=== PATIENT | male | born 1935 | race Caucasian/White ===

== ENCOUNTER 2019-06-22 18:43 | Inpatient (IN) | payer MEDICARE, BC ==
[~2019-06-22] VITALS: Ht 182.9 cm; Wt 71.8 kg
[2019-06-22 19:36] LABS: BASOPHILS % (AUTO) 0 % (0-1); EOSINOPHILS % (AUTO) 0 % (0-6); HEMATOCRIT 41.4 % (42.0-52.0); HEMOGLOBIN 13.9 g/dl (14.0-17.9); LYMPHOCYTES # (AUTO) 0.6 X10'3 (1.1-4.8); LYMPHOCYTES % (AUTO) 6.9 % (21-51); MEAN CORPUSCULAR HEMOGLOBIN 34.8 PG (27.0-31.0); MEAN CORPUSCULAR HGB CONC 33.6 g/dL (33.0-36.5); MEAN CORPUSCULAR VOLUME 103.7 FL (78-98); MEAN PLATELET VOLUME 9.1 FL (7.4-10.4); MONOCYTES # (AUTO) 0.6 X10'3 (0-0.9); MONOCYTES % (AUTO) 6.6 % (2-12); NEUTROPHILS # (AUTO) 8.1 X10'3 (1.8-7.7); NEUTROPHILS % (AUTO) 86.5 % (42-75); PLATELET COUNT 200 X10'3 (140-440); RED BLOOD COUNT 3.99 X10'6 (4.70-6.10); RED CELL DISTRIBUTION WIDTH 14.7 % (11.5-14.5); WHITE BLOOD COUNT 9.3 X10'3 (4.5-11.0)
[2019-06-22 19:49] LABS: ANION GAP 6 (8-16); CHLORIDE 99 MMOL/L (99-107); SODIUM 137 MMOL/L (135-145); TOTAL CARBON DIOXIDE 32.4 MMOL/L (24-32)
[2019-06-22 19:54] LABS: ALANINE AMINOTRANSFERASE 15 U/L (12-78); ALBUMIN 3.6 G/DL (3.4-5.0); ALBUMIN/GLOBULIN RATIO 0.9 (1.1-1.5); ALKALINE PHOSPHATASE 93 IU/L (46-116); ASPARTATE AMINO TRANSFERASE 22 U/L (10-37); BILIRUBIN,TOTAL 2.7 MG/DL (0.1-1.0); BLOOD UREA NITROGEN 40 MG/DL (7-18); BUN/CREATININE RATIO 13.7 (5.4-32.0); CALCIUM 8.9 MG/DL (8.5-10.1); CREATININE 2.93 MG/DL (0.60-1.10); GLUCOSE 92 MG/DL (70-104); LIPASE 139 U/L (73-393); POTASSIUM 4.3 MMOL/L (3.5-5.1); TOTAL PROTEIN 7.5 G/DL (6.4-8.2); eGFR 21 ML/MIN
[2019-06-22] MEDS ORDERED: morphine 4 MG/ML inj SYRINge IV PRN (20:00)
[2019-06-22] MEDS ORDERED: normal saline 1000ML IV soln IVB ONE (20:00)
[2019-06-22] MEDS ORDERED: ondansetron/PF 4mg/2ml inj IV ONE (20:00)
[2019-06-22] MEDS ORDERED: MAGN64TA8 PO (20:06)
[2019-06-22] MEDS ORDERED: SULF500T9 PO (20:06)
[2019-06-22] MEDS ORDERED: LIPA1CAP9 PO (20:06)
[2019-06-22] MEDS ORDERED: DIPH1TAB PO (20:06)
[2019-06-22] MEDS ORDERED: FOLI0.4T2 PO (20:06)
[2019-06-22] MEDS ORDERED: ATOR40TA PO (20:06)
[2019-06-22] MEDS ORDERED: APIX5TAB3 PO (20:06)
[2019-06-22] MEDS ORDERED: AMIO200T61 PO (20:06)
[2019-06-22] MEDS ORDERED: BUME1TAB34 PO (20:06)
[2019-06-22] MEDS ORDERED: CAPT12.53 PO (20:06)
[2019-06-22] MEDS ORDERED: FLO0.4C PO (20:06)
[2019-06-22] MEDS ORDERED: CARV-50 PO (20:06)
--- NOTE | 2019-06-22 20:18 | NUR ---
To CT via [facility].
[2019-06-22 20:21] LABS: CLARITY,URINE SLIGHTLY CLOUDY (Clear); GLUCOSE, URINE NEGATIVE (Neg); KETONES,URINE TRACE mg/dl (Neg); LEUKOCYTE ESTERASE ,URINE NEGATIVE (Neg); NITRITES, URINE NEGATIVE (Neg); OCCULT BLOOD,URINE LARGE (Neg); PROTEIN,URINE NEGATIVE (Neg)
[2019-06-22 20:25] LABS: COLOR,URINE Dark Yellow (Yellow); UA COLLECTION TYPE STRAIGHT CATH
[2019-06-22 20:36] LABS: HYALINE CASTS >30 /LPF (NEGATIVE)
[2019-06-22 20:38] LABS: BACTERIA,URINE NONE SEEN /HPF (Neg); SQUAMOUS EPITHELIAL CELL,UR NONE SEEN /LPF (FEW); TRANSITIONAL EPI CELLS,URINE FEW /HPF; WBC,URINE 0-4 /HPF (0-4)
[2019-06-22 20:39] LABS: MUCUS STRANDS FEW /LPF (Neg)
--- NOTE | 2019-06-22 20:44 | NUR ---
traffic engineering technician states PIV accidently dc'd at CT during transfer.
[2019-06-22] MEDS ORDERED: cefepime 2gm inj IV STA (21:49)
[2019-06-22] MEDS ORDERED: cefepime inj 2 GM in dextrose 5%-water 50ml 50 ML IV ONE (22:00)
[2019-06-22] MEDS ORDERED: morphine 2 MG/ML inj. syringe IV PRN (22:40)
[2019-06-22] MEDS ORDERED: acetaminophen 325mg tablet PO PRN (22:40)
[2019-06-22] MEDS ORDERED: ondansetron/PF 4mg/2ml inj IV PRN (22:40)
[2019-06-22] MEDS ORDERED: mag hydrox/Alum hydrox/simeth 30ml oral suspension PO PRN (22:40)
[2019-06-22] MEDS ORDERED: magnesium hydroxide 30ml (MOM) UD suspension PO PRN (22:40)
[2019-06-22] MEDS: normal saline 1000ml 1,000 ML IV SCH ×2 (22:54→23:01)
--- NOTE | 2019-06-22 23:45 | NUR ---
Patient in room PCU 3028. I have received report from ED RN and had the opportunity to ask questions and assume patient care.
--- NOTE | 2019-06-22 23:55 | NUR ---
Pt arrived via [facility] fr/ED in no acte distress. Oriented to bed , room, and surroundings. POC reviewed w/pt. Admission process started.
[2019-06-23] VITALS (7 sets, daily range): BP systolic 93–113; BP diastolic 54–65
[2019-06-23] MEDS: normal saline 1000ml 1,000 ML IV SCH ×3 (00:44→20:30)
[2019-06-23] MEDS: morphine 2 MG/ML inj. syringe IV PRN ×2 (01:42→21:33)
[2019-06-23] MEDS ORDERED: ceFOXitin 1 GM/D5W 50mL IVPB 50 ML IV SCH (06:00)
--- NOTE | 2019-06-23 06:30 | NUR ---
Problems reprioritized. Patient report given, questions answered & plan of care reviewed with Varsha DYE.
--- NOTE | 2019-06-23 06:30 | NUR ---
Patient in room PCU 3028. I have received report from Iva DYE and had the opportunity to ask questions and assume patient care.
[2019-06-23 06:41] LABS: ALBUMIN 2.8 G/DL (3.4-5.0); ANION GAP 7 (8-16); BLOOD UREA NITROGEN 40 MG/DL (7-18); BUN/CREATININE RATIO 14.9 (5.4-32.0); CALCIUM 8.2 MG/DL (8.5-10.1); CHLORIDE 103 MMOL/L (99-107); CREATININE 2.68 MG/DL (0.60-1.10); GLUCOSE 71 MG/DL (70-104); POTASSIUM 4.3 MMOL/L (3.5-5.1); SODIUM 140 MMOL/L (135-145); TOTAL CARBON DIOXIDE 29.7 MMOL/L (24-32); eGFR 23 ML/MIN
[2019-06-23 07:26] LABS: BASOPHILS % (AUTO) 0.3 % (0-1); EOSINOPHILS % (AUTO) 0 % (0-6); HEMATOCRIT 36.8 % (42.0-52.0); HEMOGLOBIN 12.1 g/dl (14.0-17.9); LYMPHOCYTES # (AUTO) 0.5 X10'3 (1.1-4.8); LYMPHOCYTES % (AUTO) 4.7 % (21-51); MEAN CORPUSCULAR HEMOGLOBIN 34.1 PG (27.0-31.0); MEAN CORPUSCULAR HGB CONC 32.9 g/dL (33.0-36.5); MEAN CORPUSCULAR VOLUME 103.5 FL (78-98); MEAN PLATELET VOLUME 9.5 FL (7.4-10.4); NEUTROPHILS # (AUTO) 9.7 X10'3 (1.8-7.7); PLATELET COUNT 173 X10'3 (140-440); RED BLOOD COUNT 3.56 X10'6 (4.70-6.10); RED CELL DISTRIBUTION WIDTH 14.8 % (11.5-14.5); WHITE BLOOD COUNT 11.2 X10'3 (4.5-11.0)
[2019-06-23] MEDS: magnesium Cl slow-release 64mg tablet PO SCH ×2 (07:38→21:30)
[2019-06-23] MEDS: atorvastatin 20mg tablet PO SCH (07:38)
[2019-06-23] MEDS: carvedilol 6.25mg tablet PO SCH ×2 (07:38→21:32)
[2019-06-23] MEDS: sulfaSALAZINE 500 MG tablet PO SCH (07:39)
[2019-06-23] MEDS: LIPASE/PROTEASE/AMYLASE 4,200 unit CAPSULE.DR PO SCH ×2 (07:39→17:38)
[2019-06-23] MEDS: folic acid 0.4mg tablet PO SCH (07:40)
[2019-06-23] MEDS: amiodarone 200mg tablet PO SCH (07:40)
--- NOTE | 2019-06-23 10:08 | NUR ---
Malnutrition consult: Pt reports poor appetite for several months. Unable to assess PO intake at this time as pt currently NPO. Current wt 71.8 kg using standing scale with BMI 21.5 documented at 72" tall. No past visits to check for wt trends or past documentation of height. Per H&P pt appears well developed and well nourished. Pt just admit pending physical assessment for possible changes in muscle strength, edema, and pt awareness. Currently not enough information at this time to best assess for malnutrition. Will f/u tomorrow. Addendum: 06/23/19 at [address] Amended: Links added.
--- NOTE | 2019-06-23 12:44 | NUR ---
I paged Dr. Pemberton about Dr. Danw; Dr dawn said patient would not need surgery since no ng tube was placed in ED. I'm waiting for response about diet order for patient.
[2019-06-23] MEDS: cefepime 1GM in D5W 50mL 50 ML IV SCH (15:33)
[2019-06-23] MEDS: metroNIDAZOLE-Flagyl 500mg/NS 100 ML IV SCH (16:31)
--- NOTE | 2019-06-23 18:29 | NUR ---
Patient report given to Iva DYE
--- NOTE | 2019-06-23 19:21 | NUR ---
Patient in room PCU 3028. I have received report from Varsha DYE and had the opportunity to ask questions and assume patient care.
--- NOTE | 2019-06-23 20:07 | NUR ---
Spoke with Dr. Dawn regarding possible CT with oral contrast with overnight prep due to family questions and mention of it in MDs note. MD stated he wants to wait until tomorrow depending on what the paracentesis results are. Will update family & patient
[2019-06-23] MEDS: lactobacillus rhamnosus 10,000 MMU CELLS/CAPSULE PO SCH (21:31)
[2019-06-24] VITALS (16 sets, daily range): BP systolic 94–112; BP diastolic 40–67
[2019-06-24] MEDS: sulfaSALAZINE 500 MG tablet PO SCH ×3 (00:17→19:33)
[2019-06-24] MEDS: cefepime 1GM in D5W 50mL 50 ML IV SCH ×3 (00:18→15:19)
[2019-06-24] MEDS: metroNIDAZOLE-Flagyl 500mg/NS 100 ML IV SCH ×3 (00:54→16:14)
[2019-06-24 06:05] LABS: BASOPHILS % (AUTO) 0.2 % (0-1); EOSINOPHILS % (AUTO) 0 % (0-6); HEMATOCRIT 35.3 % (42.0-52.0); LYMPHOCYTES # (AUTO) 0.5 X10'3 (1.1-4.8); LYMPHOCYTES % (AUTO) 5.7 % (21-51); MEAN CORPUSCULAR HEMOGLOBIN 34.7 PG (27.0-31.0); MEAN CORPUSCULAR HGB CONC 33.9 g/dL (33.0-36.5); MEAN CORPUSCULAR VOLUME 102.4 FL (78-98); MONOCYTES # (AUTO) 1.1 X10'3 (0-0.9); MONOCYTES % (AUTO) 12.7 % (2-12); NEUTROPHILS # (AUTO) 6.8 X10'3 (1.8-7.7); NEUTROPHILS % (AUTO) 81.4 % (42-75); PLATELET COUNT 179 X10'3 (140-440); RED BLOOD COUNT 3.45 X10'6 (4.70-6.10); RED CELL DISTRIBUTION WIDTH 14.7 % (11.5-14.5); WHITE BLOOD COUNT 8.3 X10'3 (4.5-11.0)
--- NOTE | 2019-06-24 06:15 | NUR ---
Patient in room PCU 3028. I have received report from Lucy DYE and had the opportunity to ask questions and assume patient care.
[2019-06-24 06:16] LABS: ALBUMIN 2.4 G/DL (3.4-5.0); ANION GAP 10 (8-16); BLOOD UREA NITROGEN 46 MG/DL (7-18); BUN/CREATININE RATIO 17.4 (5.4-32.0); CHLORIDE 104 MMOL/L (99-107); CREATININE 2.65 MG/DL (0.60-1.10); GLUCOSE 104 MG/DL (70-104); POTASSIUM 4.7 MMOL/L (3.5-5.1); SODIUM 137 MMOL/L (135-145); TOTAL CARBON DIOXIDE 23.3 MMOL/L (24-32); eGFR 23 ML/MIN
--- NOTE | 2019-06-24 07:12 | NUR ---
Patient in room PCU 3028. I have received report from MARNIE Enrique and had the opportunity to ask questions and assume patient care.
[2019-06-24] MEDS: carvedilol 6.25mg tablet PO SCH ×3 (08:00→21:18)
--- NOTE | 2019-06-24 08:44 | NUR ---
Problems reprioritized. Patient report given, questions answered & plan of care reviewed with Heena DYE.
[2019-06-24] MEDS: lactobacillus rhamnosus 10,000 MMU CELLS/CAPSULE PO SCH ×2 (09:27→19:33)
[2019-06-24] MEDS: amiodarone 200mg tablet PO SCH (09:27)
[2019-06-24] MEDS: LIPASE/PROTEASE/AMYLASE 4,200 unit CAPSULE.DR PO SCH ×2 (09:27→17:38)
[2019-06-24] MEDS: folic acid 0.4mg tablet PO SCH (09:27)
[2019-06-24] MEDS: tamsulosin 0.4mg capsule PO SCH (09:28)
[2019-06-24] MEDS: atorvastatin 20mg tablet PO SCH (09:28)
--- NOTE | 2019-06-24 12:32 | NUR ---
PAGER ID: [phone] MESSAGE: [id number] Teri Reyes 1.36L off from paracentesis. Has orders for NS 100ml/hr IV Q10H. Currently drinking fluids. Continue orders for IV NS? Ignacio [facility] [id number]
[2019-06-24 13:10] LABS: BF RBC COUNT 4475 /CU MM; BF WBC COUNT 19025 /CU MM (0-1000); BFAPPEAR CLOUDY; BFCOLOR AMBER; BFVOLUME 59 ML; NEUTROPHILS,BODY FLUID 94 %
[2019-06-24 13:11] LABS: LYMPHOCYTES,BODY FLUID 1 %; MONOCYTES,BODY FLUID 5 %
[2019-06-24] MEDS: diatr meglu/diatrizoate 30ml oral sol.-(3 dose) bottle PO SCH ×3 (15:18→20:33)
--- NOTE | 2019-06-24 15:37 | NUR ---
F/u: Pt PO 100% clear liquids advanced from NPO. LBM 06/23 having BMs. Still lack enough criteria to qualify for malnutrition at this time. Will continue to monitor. Addendum: 06/24/19 at [address] Amended: Links added.
--- NOTE | 2019-06-24 16:56 | NUR ---
paged dr. green PAGER ID: [phone] MESSAGE: [facility] [phone] do you want to continue iv fluids? has NS @
[2019-06-24] MEDS: normal saline 1000ml 1,000 ML IV SCH (17:26)
--- NOTE | 2019-06-24 18:38 | NUR ---
Problems reprioritized. Patient report given, questions answered & plan of care reviewed with MARNIE Castro.
--- NOTE | 2019-06-24 18:39 | NUR ---
Patient in room PCU 3028. I have received report from MARNIE Naik and had the opportunity to ask questions and assume patient care. Patient is resting comfortably on hospital bed, is at bedside. He is A&Ox3, GRULLON and is appropriate, he will be going to CT tonight @ 2100. I will continue to monitor.
[2019-06-24] MEDS ORDERED: iohexol 300mg/ml 100ml inj. ONE (19:13)
--- NOTE | 2019-06-24 20:37 | NUR ---
Patient was able to transfer to wheelchair w/o problem, he is going to CT.
[2019-06-25] VITALS (10 sets, daily range): BP systolic 81–107; BP diastolic 39–70
[2019-06-25] MEDS: cefepime 1GM in D5W 50mL 50 ML IV SCH ×3 (00:22→16:16)
[2019-06-25] MEDS: metroNIDAZOLE-Flagyl 500mg/NS 100 ML IV SCH ×3 (01:18→16:16)
--- NOTE | 2019-06-25 06:20 | NUR ---
Problems reprioritized. Patient report given, questions answered & plan of care reviewed with MARNIE Majano.
[2019-06-25 06:39] LABS: BASOPHILS % (AUTO) 0.3 % (0-1); EOSINOPHILS % (AUTO) 0 % (0-6); HEMATOCRIT 33.5 % (42.0-52.0); HEMOGLOBIN 11.5 g/dl (14.0-17.9); LYMPHOCYTES # (AUTO) 0.4 X10'3 (1.1-4.8); LYMPHOCYTES % (AUTO) 4.2 % (21-51); MEAN CORPUSCULAR HEMOGLOBIN 34.7 PG (27.0-31.0); MEAN CORPUSCULAR HGB CONC 34.3 g/dL (33.0-36.5); MEAN CORPUSCULAR VOLUME 101.1 FL (78-98); MEAN PLATELET VOLUME 8.8 FL (7.4-10.4); MONOCYTES # (AUTO) 1.2 X10'3 (0-0.9); MONOCYTES % (AUTO) 11.5 % (2-12); NEUTROPHILS # (AUTO) 8.6 X10'3 (1.8-7.7); PLATELET COUNT 206 X10'3 (140-440); RED BLOOD COUNT 3.32 X10'6 (4.70-6.10); RED CELL DISTRIBUTION WIDTH 14.7 % (11.5-14.5); WHITE BLOOD COUNT 10.2 X10'3 (4.5-11.0)
[2019-06-25 06:40] LABS: ALBUMIN 2.3 G/DL (3.4-5.0); ANION GAP 10 (8-16); BLOOD UREA NITROGEN 48 MG/DL (7-18); BUN/CREATININE RATIO 18.6 (5.4-32.0); CALCIUM 7.9 MG/DL (8.5-10.1); CHLORIDE 103 MMOL/L (99-107); CREATININE 2.58 MG/DL (0.60-1.10); GLUCOSE 93 MG/DL (70-104); SODIUM 138 MMOL/L (135-145); TOTAL CARBON DIOXIDE 25.4 MMOL/L (24-32); eGFR 24 ML/MIN
[2019-06-25 06:46] LABS: POTASSIUM 4.1 MMOL/L (3.5-5.1)
[2019-06-25] MEDS: LIPASE/PROTEASE/AMYLASE 4,200 unit CAPSULE.DR PO SCH ×2 (07:02→20:19)
[2019-06-25] MEDS: atorvastatin 20mg tablet PO SCH (07:02)
[2019-06-25] MEDS: lactobacillus rhamnosus 10,000 MMU CELLS/CAPSULE PO SCH ×2 (07:03→20:19)
[2019-06-25] MEDS: sulfaSALAZINE 500 MG tablet PO SCH ×2 (07:03→20:19)
[2019-06-25] MEDS: carvedilol 6.25mg tablet PO SCH ×2 (07:03→20:20)
[2019-06-25] MEDS: amiodarone 200mg tablet PO SCH (07:04)
[2019-06-25] MEDS: folic acid 0.4mg tablet PO SCH (07:04)
[2019-06-25] MEDS: magnesium Cl slow-release 64mg tablet PO SCH (08:00)
[2019-06-25] MEDS: normal saline 1000ml 1,000 ML IV SCH (10:05)
[2019-06-25] MEDS ORDERED: DOBUTamine-DoBUTrex 500mg/D5W 250 ML IV SCH (13:10)
[2019-06-25] MEDS ORDERED: folic acid 0.4mg tablet PO SCH (13:49)
--- NOTE | 2019-06-25 15:59 | NUR ---
Initial: Pt admit w/ abdominal pain found to have ascites, EF 10-15% likely causing liver disease per MD note. Pt takes folic acid and pancreatic enzymes per med rec; per family enzymes to help w/ digestion and no prior significant pancreatic hx. Ascites negative for pathology so no need for OR per MD note. CT shows colonic diverticulosis without diverticulitis as well as mesenteric edema consistent w/ anasarca per MD note. Pt not present during RD visit but SO/family present. SO/family reports UBW prior to ascites 150-160 pounds, pt has always been thin whole life, and past 2 weeks decreased PO r/t ascited decreasing appetite. At this time pt has no wt loss hx, no severe muscle weakness noted, mild edema; PO 100% clear liquids since admit. At this time pt qualifies for non-severe malnutrition; MD notified. Pt family agree that ensure clear ONS would be be enjoyable for pt to get extra protein/kcals on clears; aware that require MD verification prior to sending on trays. RD provided pt SO/family w/ written/verbal malnutrition ed and RD contact information. Will continue to monitor for additional protein needs as diet advances. Rec: 1. advance diet per MD to regular 2. ensure clear TIDWM; pending MD verification prior to sending on meals 3. weekly wts Addendum: 06/25/19 at [address] Amended: Links added.
--- NOTE | 2019-06-25 16:50 | NUR ---
Patient in room PCU 3028. I have received report from MARNIE Majano and had the opportunity to ask questions and assume patient care.
[2019-06-25] MEDS ORDERED: furosemide 40mg/4ml inj IV ONE (17:00)
[2019-06-25] MEDS ORDERED: lactose-reduced food (Ensure High Protein) 237ml bottle PO SCH (18:00)
[2019-06-25] MEDS ORDERED: NUT.TX.IMPAIRED DIGEST FXN (Ensure Clear) 237 ML PO SCH (18:00)
[2019-06-25] MEDS: apixaban 5mg tablet PO SCH (20:19)
[2019-06-25] MEDS: furosemide 20 MG/2 ML vial IV SCH (20:22)
--- NOTE | 2019-06-25 23:28 | NUR ---
Patient had a low BP of 81/39 map 49, retook 10 min later, BP is now 87/45 map of 56. Spoke to Dr. Arteaga will continue to monitor this patient.
[2019-06-26] VITALS (9 sets, daily range): BP systolic 17–112; BP diastolic 42–63
[2019-06-26] MEDS: cefepime 1GM in D5W 50mL 50 ML IV SCH ×3 (00:12→16:28)
--- NOTE | 2019-06-26 00:12 | NUR ---
scanner not working, manual medication specialist for cefepime
--- NOTE | 2019-06-26 00:45 | NUR ---
Patients one time dose of Lasix 40 mg due at 1700 was not given by daytime nurse. Spoke to Dr. Arteaga because patient had another does of Lasix 20 mg due at the time med that was missed was noticed around 1999. He said hold the one time dose and give the scheduled 20 mg.
[2019-06-26] MEDS: metroNIDAZOLE-Flagyl 500mg/NS 100 ML IV SCH ×3 (01:18→16:28)
[2019-06-26 03:41] LABS: BASOPHILS % (AUTO) 0.3 % (0-1); EOSINOPHILS % (AUTO) 0.1 % (0-6); HEMATOCRIT 31.4 % (42.0-52.0); HEMOGLOBIN 10.7 g/dl (14.0-17.9); LYMPHOCYTES # (AUTO) 0.6 X10'3 (1.1-4.8); LYMPHOCYTES % (AUTO) 5.1 % (21-51); MEAN CORPUSCULAR HEMOGLOBIN 34.8 PG (27.0-31.0); MEAN CORPUSCULAR HGB CONC 34.3 g/dL (33.0-36.5); MEAN CORPUSCULAR VOLUME 101.6 FL (78-98); MEAN PLATELET VOLUME 8.4 FL (7.4-10.4); MONOCYTES # (AUTO) 1.4 X10'3 (0-0.9); MONOCYTES % (AUTO) 11.9 % (2-12); NEUTROPHILS # (AUTO) 9.8 X10'3 (1.8-7.7); NEUTROPHILS % (AUTO) 82.6 % (42-75); PLATELET COUNT 210 X10'3 (140-440); RED BLOOD COUNT 3.09 X10'6 (4.70-6.10); RED CELL DISTRIBUTION WIDTH 14.7 % (11.5-14.5); WHITE BLOOD COUNT 11.9 X10'3 (4.5-11.0)
[2019-06-26 03:49] LABS: ANION GAP 6 (8-16); BLOOD UREA NITROGEN 49 MG/DL (7-18); BUN/CREATININE RATIO 17.4 (5.4-32.0); CALCIUM 7.7 MG/DL (8.5-10.1); CHLORIDE 104 MMOL/L (99-107); CREATININE 2.81 MG/DL (0.60-1.10); GLUCOSE 102 MG/DL (70-104); POTASSIUM 3.6 MMOL/L (3.5-5.1); SODIUM 137 MMOL/L (135-145); eGFR 22 ML/MIN
--- NOTE | 2019-06-26 06:02 | NUR ---
Problems reprioritized. Patient report given, questions answered & plan of care reviewed with MARNIE Majano.
[2019-06-26] MEDS: amiodarone 200mg tablet PO SCH (07:31)
[2019-06-26] MEDS: sulfaSALAZINE 500 MG tablet PO SCH ×2 (07:31→19:28)
[2019-06-26] MEDS: LIPASE/PROTEASE/AMYLASE 4,200 unit CAPSULE.DR PO SCH ×2 (07:31→17:32)
[2019-06-26] MEDS: tamsulosin 0.4mg capsule PO SCH (07:32)
[2019-06-26] MEDS: lactobacillus rhamnosus 10,000 MMU CELLS/CAPSULE PO SCH ×2 (07:32→19:28)
[2019-06-26] MEDS: magnesium Cl slow-release 64mg tablet PO SCH (07:32)
[2019-06-26] MEDS: atorvastatin 20mg tablet PO SCH (07:33)
[2019-06-26] MEDS: carvedilol 6.25mg tablet PO SCH ×2 (08:00→19:41)
[2019-06-26] MEDS: furosemide 20 MG/2 ML vial IV SCH ×2 (08:00→19:28)
[2019-06-26] MEDS: apixaban 5mg tablet PO SCH (08:00)
--- NOTE | 2019-06-26 18:28 | NUR ---
Patient in room PCU 3028. I have received report from MARNIE Majano and had the opportunity to ask questions and assume patient care.
--- NOTE | 2019-06-26 19:29 | NUR ---
This computers scanner is either broken or was not put on the flyer maker properly, no other computers are availale at this moment so I will have to manually click administer on the medications.
--- NOTE | 2019-06-27 01:15 | NUR ---
Patient transferred from PCU to [facility] via [facility] with Dobutamine drip, on gurney at approximately 0000. Belongings sent home with alicia.
== END 2019-06-26 23:57 | DRG 291 ==
LOC: ER 18:44 → PCU 3S 06-23 00:32 → CMPBEDREQ 06-25 19:44
PROVIDERS: ADMIT Hospitalist; ATTEND Family Medicine
PROC: 5A09357 Assistance with Respiratory Ventilation, Less than 24 Consecutive Hours, Continuous Positive Airway Pressure (ICD-10-PCS; 2019-06-23)
PROC: 0W9G3ZX Drainage of Peritoneal Cavity, Percutaneous Approach, Diagnostic (ICD-10-PCS; principal; 2019-06-24)
PROC: 5A09357 Assistance with Respiratory Ventilation, Less than 24 Consecutive Hours, Continuous Positive Airway Pressure (ICD-10-PCS; 2019-06-24)
PROC: BW211ZZ Computerized Tomography (CT Scan) of Abdomen and Pelvis using Low Osmolar Contrast (ICD-10-PCS; 2019-06-24)
PROC: 5A09357 Assistance with Respiratory Ventilation, Less than 24 Consecutive Hours, Continuous Positive Airway Pressure (ICD-10-PCS; 2019-06-25)
PROC: 02HV33Z Insertion of Infusion Device into Superior Vena Cava, Percutaneous Approach (ICD-10-PCS; 2019-06-25)
PROC: B548ZZA Ultrasonography of Superior Vena Cava, Guidance (ICD-10-PCS; 2019-06-25)
PROC: 4A02X4A Measurement of Cardiac Electrical Activity, Guidance, External Approach (ICD-10-PCS; 2019-06-25)
DX: I13.0 Hypertensive heart and chronic kidney disease with heart failure and stage 1 through stage 4 chronic kidney disease, or unspecified chronic kidney disease (principal); I50.43 Acute on chronic combined systolic (congestive) and diastolic (congestive) heart failure; R18.8 Other ascites; N18.9 Chronic kidney disease, unspecified; K72.90 Hepatic failure, unspecified without coma; K57.90 Diverticulosis of intestine, part unspecified, without perforation or abscess without bleeding; K76.1 Chronic passive congestion of liver; I27.81 Cor pulmonale (chronic); R01.1 Cardiac murmur, unspecified; I25.10 Atherosclerotic heart disease of native coronary artery without angina pectoris; I25.2 Old myocardial infarction; Z79.01 Long term (current) use of anticoagulants; Z86.73 Personal history of transient ischemic attack (TIA), and cerebral infarction without residual deficits; Z87.442 Personal history of urinary calculi; Z95.0 Presence of cardiac pacemaker; Z95.1 Presence of aortocoronary bypass graft; Z95.5 Presence of coronary angioplasty implant and graft; Z88.1 Allergy status to other antibiotic agents; Z79.899 Other long term (current) drug therapy
CPT/HCPCS: 36415; 36569; 49083; 71250; 74176; 74177; 76937; 80048; 80053; 81001; 83690; 85025; 85610; 87070; 87081; 89051; 93306; 96365; 99285; G0378; J0692; J0694; J1250; J1940; J2270; J2405; J3490; J7030; J7060; Q9963; Q9967